=== PATIENT | female | born 1950 | race Caucasian/White ===

== ENCOUNTER → 2018-11-04 14:57 | Outpatient (CLI) | payer BC, MEDICARE ==
[2018-11-05 14:18] LABS: HEPATITIS C ANTIBODY >11.0 S/CO RAT (0.0-0.9)
== END | disposition home or self-care (01) ==
LOC: D.LAB 14:57
PROVIDERS: Internal Medicine Gastroenterology
DX: K59.00 Constipation, unspecified (principal); R10.84 Generalized abdominal pain

== ENCOUNTER → 2018-11-11 14:32 | Outpatient (CLI) | payer BC, MEDICARE ==
[2018-11-12 10:20] LABS: HEP B CORE AB TOTAL Negative (Negative); HEPATITIS C ANTIBODY >11.0 S/CO RAT (0.0-0.9)
== END | disposition home or self-care (01) ==
LOC: D.LAB 14:32
PROVIDERS: Internal Medicine Gastroenterology
DX: K59.00 Constipation, unspecified (principal); R10.84 Generalized abdominal pain

== ENCOUNTER → 2018-11-25 09:16 | Outpatient (CLI) | payer BC, MEDICARE ==
[2018-11-29 09:08] LABS: HCVGENO - HEP C QUANT 2890000 IU/mL (()); HCVGENO - LOG 10 6.461 (())
== END | disposition home or self-care (01) ==
LOC: D.LAB 09:15 → D.US 09:30 → D.NM 10:00
PROVIDERS: Internal Medicine Gastroenterology
DX: R10.9 Unspecified abdominal pain (principal)

== ENCOUNTER 2018-12-30 19:00 | Outpatient (CLI) | payer BC, MEDICARE | END 2018-12-30 23:59 | disposition home or self-care (01) | LOC: D.MAMMO 19:00 | PROVIDERS: ATTEND Family Medicine | DX: Z12.31 Encounter for screening mammogram for malignant neoplasm of breast (principal) ==

== ENCOUNTER → 2019-05-26 09:05 | Outpatient (CLI) | payer BC, MEDICARE ==
[2019-05-26 09:42] LABS: ALBUMIN 3.8 g/dL (3.4-5.0); BILIRUBIN - DIRECT 0.11 mg/dL (0.00-0.30); BILIRUBIN - INDIRECT 0.33 mg/dL (0.00-1.00); BILIRUBIN - TOTAL 0.44 mg/dL (0.2-1.3)
== END | disposition home or self-care (01) ==
LOC: D.LAB 09:00 → D.US 09:30
PROVIDERS: ATTEND Internal Medicine Gastroenterology
DX: K76.0 Fatty (change of) liver, not elsewhere classified (principal)